=== PATIENT | female | born 1960 | race Caucasian/White ===

== ENCOUNTER 2021-01-26 04:53 | Emergency (ER) | payer OTHER ==
[2021-01-26] MEDS ORDERED: Acetaminophen 500 MG TAB ONE (05:28)
[2021-01-26] MEDS ORDERED: Ibuprofen 100 MG/5 ML UDCUP ONE ×2 (05:28)
== END 2021-01-26 05:41 | disposition home or self-care (01) ==
LOC: CSHERS 04:53
DX: R51.9 Headache, unspecified (principal)
CPT/HCPCS: 99283

== ENCOUNTER 2021-02-08 09:42 | Outpatient (CLI) | payer OTHER | END 2021-02-08 09:43 | disposition home or self-care (01) | LOC: CSHMAMMO 09:42 | PROVIDERS: ATTEND Family Medicine Sports Medicine | DX: Z12.31 Encounter for screening mammogram for malignant neoplasm of breast (principal) | CPT/HCPCS: 77063; 77067 ==